=== PATIENT | male | born 2000 | race Hispanic/Latino ===

== ENCOUNTER 2020-10-11 13:50 | Emergency (ER) | payer BC ==
--- OUTSIDE RECORDS SUMMARY | 2020-10-11 13:52 | XMS REPORT | Continuity of Care Document ---
:2000 Author Organization [facility] t Address [address] [place] [address] Care Team Providers Name Role Phone Asked, Pcp Primary Care Physician Unavailable Viviane Kay Attending Clinician Unavailable Larissa Attending Clinician Unavailable DORETHA Attending Clinician Unavailable Problems This patient has no known problems. Allergies, Adverse Reactions, Alerts This patient has no known allergies or adverse reactions. Social History Social Habit Start Date Stop Date Quantity Comments Source Tobacco use and 2019-07-12 2019-07-12 Never used Omid Reyes ethodist exposure 00:00:00 00:00:00 Sex Assigned At 2000 [address] [place] Amy ethodist 00:00:00 00:00:00 Smoking Status Start Date Stop Date Source Never smoker [place] Methodis t Medications This patient has no known medications. Procedures This patient has no known procedures. Plan of Care Planned Activity Planned Date Details Comments Source Future Scheduled 2020-10-26 INFLUENZA VACCINE Nena n [facility] Test 00:00:00 [code = INFLUENZA VACCINE] Future Scheduled 2018 Hepatitis C Anne Met hooksist Test 00:00:00 screening (procedure) [code = 838278384] Future Scheduled 2012 COVID-19 VACCINE (1) Terell conti [facility] Test 00:00:00 [code = COVID-19 VACCINE (1)] Encounters Start End Encounter Admission Attending Care Care Encounter Source Date/Time Date/Time Type Type Clinicians Facility Department ID 2019-07-12 2019-07-12 Emergency DORETHA, [facility] [id number] [address] [place] 00:00:00 00:00:[address] [address] Results Test Description Test Time Test Comments Results Result Comments Source Toxicology 2020-06-29 00:55:00 Test Item Value Reference Range Interpretation Comme nts Toxicology (test code = Not Detected NotDetected RODRIGUEZ) Toxicology (test code = Not Detected NotDetected PCP) Toxicology (test code = Not Detected NotDetected COCN) Toxicology (test code = Not Detected NotDetected METHAMPU) Toxicology (test code = Not Detected NotDetected OPIA) Toxicology (test code = Not Detected NotDetected AMPHU) Toxicology (test code = Not Detected NotDetected ALEJANDRA) Toxicology (test code = Not Detected NotDetected TRICY) Toxicology (test code = Not Detected NotDetected MTD) Toxicology (test code = Not Detected NotDetected CAROLA) Toxicology (test code = Not Detected NotDetected OXYCOD) Toxicology (test code = Not Detected NotDetected PPX) Toxicology (test code = See_Comment The Med[employer] Profile-V Panel MTCUTOFF) for Qualitative Drugs ofAbuse assays are for presumptive scr eening testing only.Th e drug class and detection l imits are as follows:Drug Cl ass Detection LimitAmphetamin e 500 ng/mL*B arbiturates 20 0 ng/mLBenzodiaze pines 150 ng/mL*C ocaine 15 0 ng/mL*Methamphe tamine 500 ng/mL* Methadone 2 00 ng/mL*Opiates 100 ng/mL* Oxycodone 1 00 ng/mLPCP 25 ng/mLPropoxyphe ne 300 ng/mLTr icyclic Antidepressants 300 ng/mLCannabinoi ds (THC) 50 ng/mLTe sts which yield a presump tive positive result must betested using a more specific altern ate chemical method inorder to obtain a confirmed sean tical result. Additionalconfi rmation and identification may be ordered on a ro utinebasis, if desired. Pr esumptive positive urines are held fortwo weeks. [ Automated message] The sy stem which generated this result transmitted ref erence range: . The reference range was not used to interpr et this result as jennifer l/abnormal. Urine Source: Urine VoidedReference Lab [id number] 15:36:00 Test Item Value Reference Range Interpretation Comments Reference Lab DETECTED NotDetected AA Results called and verbally Testing (test code verified through = [id number]) "read-back".by Susy Mitchell on 09/24 at 1536.The use of this assay as an In vitro diagnostic under theFDA Em ergency Use Authorization ( EUA) is limited tolabor atories that are certified u nder the ClinicalLaborat ory Improvement Meghann ndments of 1988 (CLIA), 42 U.S.C.263a, to perform high complexity tests. Reason for Testing: PUI -Symptomatic
--- NOTE | 2020-10-11 15:27 | EDPHYS ---
Physician Documentation [facility] Name: Russell Krishna Jr Age: 20 yrs Sex: Male : 2000 Arrival Date: 10/11/2020 Time: 13:54 Bed 10 Private MD: ED Physician Cullen Galarza HPI: 10/11 17:20 This 20 yrs old Male presents to ER via Ambulatory with complaints of Insect kb Bite. 17:20 The patient presents with an abscess of the right knee. Description: erythematous, kb swollen, warm. Onset: The symptoms/episode began/occurred 2 day(s) ago. Possible cause(s): unknown. Associated signs and symptoms: Pertinent positives: erythema, swelling, Pertinent negatives: discharge, drainage, foreign body sensation, fever, headache, nausea, shortness of breath, vomiting. Modifying factors: the symptoms are alleviated by nothing, the symptoms are aggravated by pressure, squeezing the lesion and expressing the contents, touching. Severity of symptoms: At their worst the symptoms were mild, in the emergency department the symptoms are unchanged. The patient has not experienced similar symptoms in the past. The patient has not recently seen a physician. Historical: - Allergies: 14:20 No Known Allergies; ll1 - PMHx: 14:20 None; ll1 - PSHx: 14:20 hernia repair; ll1 - Immunization history:: Flu vaccine is not up to date. - Social history:: Smoking status: Reported history of juuling and/or vaping. Patient denies any tobacco usage or history of. ROS: 17:20 Constitutional: Negative for fever, chills, and weight loss. kb 17:20 Skin: Positive for abscess, of the right knee. 17:20 All other systems are negative. Exam: 17:19 Constitutional: This is a well developed, well nourished patient who is awake, alert, kb and in no acute distress. Head/Face: Normocephalic, atraumatic. ENT: Moist Mucous membranes Respiratory: Respirations even and unlabored. No increased work of breathing, no retractions or nasal flaring. MS/ Extremity: Pulses equal, no cyanosis. Neurovascular intact. Full, normal range of motion. Neuro: Awake and alert, GCS 15, oriented to person, place, time, and situation. Moves all extremities. Normal gait. Psych: Awake, alert, with orientation to person, place and time. Behavior, mood, and affect are within normal limits. 17:19 Skin: abscess, that is small, of the right knee, with induration, with surrounding cellulitis, that is very mild. Vital Signs: 14:21 BP 120 / 74; Pulse 85; Resp 17; Temp 98.6; Pulse Ox 100% ; Weight 63.5 kg; Height 5 ft. ll1 10 in. (177.80 cm); Pain 10/10; 14:21 Body Mass Index 20.09 (63.50 kg, 177.80 cm) ll1 MDM: 15:15 Patient medically screened. kb 17:19 Data reviewed: vital signs, nurses notes. Data interpreted: Pulse oximetry: on room air kb is 100 %. Interpretation: normal. Counseling: I had a detailed discussion with the patient and/or guardian regarding: the historical points, exam findings, and any diagnostic results supporting the discharge/admit diagnosis, the need for outpatient follow up, a family practitioner, to return to the emergency department if symptoms worsen or persist or if there are any questions or concerns that arise at home. Administered Medications: 15:55 Drug: Bactrim (trimethoprim-sulfamethoxazole) (160 mg-800 mg (DS) 1 tablet Route: PO; ss 15:55 Follow up: Response: No adverse reaction ss Disposition: 10/12 07:01 Co-signature as Attending Physician, Cullen Galarza MD. rn Disposition Summary: 10/11/20 15:27 Discharge Ordered Location: Home kb Condition: Stable kb Diagnosis - Cutaneous abscess of right lower limb kb Followup: kb - With: Emergency Department - When: As needed - Reason: Worsening of condition Followup: kb - With: Private Physician - When: 2 - 3 days - Reason: Recheck today's complaints, Continuance of care, Re-evaluation by your physician Discharge Instructions: - Discharge Summary Sheet kb - Skin Abscess, [id number] kb Forms: - Medication Reconciliation Form kb - Thank You Letter kb - Work release form kb - Antibiotic Education kb - Prescription Opioid Use kb - Family Work Release ss Prescriptions: - Bactrim DS 800-160 mg Oral Tablet - take 1 tablet by ORAL route every 12 hours for 7 days; 14 tablet; Refills: 0, kb Product Selection Permitted Signatures: Michelle Riley FNP-C FNP-Jermaine Cullen Galarza MD MD rn Esther Bradshaw, RN RN ss Diego Blunt RN RN ll1
--- NOTE | 2020-10-11 15:27 | ER ---
Nurse's Notes [facility] Name: Russell Krishna Jr Age: 20 yrs Sex: Male : 2000 Arrival Date: 10/11/2020 Time: 13:54 Bed 10 [facility] MD: Diagnosis: Cutaneous abscess of right lower limb Presentation: 10/11 14:21 Chief complaint: Patient states: R knee abrasion for 2 days. Swelling and redness ll1 started today. Coronavirus screen: Client denies travel out of the [place] in the last 14 days. At this time, the client does not indicate any symptoms associated with coronavirus-19. Ebola Screen: Patient denies travel to an Ebola-affected area in the 21 days before illness onset. Initial Sepsis Screen: Does the patient meet any 2 criteria? No. Patient's initial sepsis screen is negative. Does the patient have a suspected source of infection? Yes: Skin breakdown/wound. Risk Assessment: Do you want to hurt yourself or someone else? Patient reports no desire to harm self or others. Onset of symptoms was October 10, 2020. 14:21 Method Of Arrival: Ambulatory ll1 14:21 Acuity: ERASMO 4 ll1 Historical: - Allergies: 14:20 No Known Allergies; ll1 - PMHx: 14:20 None; ll1 - PSHx: 14:20 hernia repair; ll1 - Immunization history:: Flu vaccine is not up to date. - Social history:: Smoking status: Reported history of juuling and/or vaping. Patient denies any tobacco usage or history of. Screenin:17 Abuse screen: Denies threats or abuse. Denies injuries from another. Nutritional ss screening: No deficits noted. Tuberculosis screening: Never had TB. Fall Risk None identified. Assessment: 15:17 General: Appears in no apparent distress. comfortable, Behavior is calm, cooperative. ss Pain: Complains of pain in right knee Pain currently is 10 out of 10 on a pain scale. Quality of pain is described as aching, tender, throbbing, Pain began 2-3 days ago. Is continuous. Neuro: Level of Consciousness is awake, alert, obeys commands, Oriented to person, place, time, situation, Heritage Consultant are equal bilaterally Speech is normal. Cardiovascular: Capillary refill < 3 seconds is brisk in bilateral fingers Patient's skin is warm and dry. Cardiovascular: Pulses are palpable in right posterior tibial artery and left posterior tibial artery. Respiratory: Airway is patent Respiratory effort is even, unlabored, Respiratory pattern is regular, symmetrical. GI: Patient currently denies abdominal pain, diarrhea, nausea, vomiting. EENT: Nares are clear Oral mucosa is moist. Derm: Skin is intact, is healthy with good turgor, Skin is dry, Skin is pink, warm \T\ dry. normal. Derm: Abscess located on right knee is half dollar sized. Musculoskeletal: Circulation, motion, and sensation intact. Range of motion: intact in all extremities, Swelling present in right knee. Vital Signs: 14:21 BP 120 / 74; Pulse 85; Resp 17; Temp 98.6; Pulse Ox 100% ; Weight 63.5 kg; Height 5 ft. ll1 10 in. (177.80 cm); Pain 10/10; 14:21 Body Mass Index 20.09 (63.50 kg, 177.80 cm) ll1 ED Course: 13:54 Patient arrived in ED. ds1 14:20 Arm band placed on. ll1 14:23 Triage completed. ll1 14:59 Michelle Riley [facility]C [facility] kb 14:59 Cullen Galarza MD is Attending Physician. kb 15:16 Esther Bradshaw, RACHEL is Primary Nurse. ss 15:17 Patient has correct armband on for positive identification. Bed in low position. Call ss light in reach. 15:55 No provider procedures requiring assistance completed. Patient did not have IV access ss during this emergency room visit. Administered Medications: 15:55 Drug: Bactrim (trimethoprim-sulfamethoxazole) (160 mg-800 mg (DS) 1 tablet Route: PO; ss 15:55 Follow up: Response: No adverse reaction ss Outcome: 15:27 Discharge ordered by MD. kb 15:55 Discharged to home ambulatory, with family. ss 15:55 Condition: good 15:55 Discharge instructions given to patient, family, Instructed on discharge instructions, follow up and referral plans. Demonstrated understanding of instructions, follow-up care. 15:55 Patient left the ED. ss Signatures: Michelle Riley FNP-C HEAD START DIRECTOR-Nida Carter ds1 Esther Bradshaw RN RN Jose Raul, Lynsay, RN RN ll1
[2020-10-11 16:01] VITALS: BP 120/74; TEMP 98.6; O2SAT 100
[2020-10-11] MEDS ORDERED: SMZ./TMP. 800/160 MG TABLET ONE (16:14)
== END 2020-10-11 15:55 | disposition home or self-care (01) ==
LOC: ER 13:50
DX: L03.115 Cellulitis of right lower limb (principal)
CPT/HCPCS: 99283